=== PATIENT | female | born 1930 | race Caucasian/White ===

== ENCOUNTER 2017-02-15 09:24 | Emergency (ER) | payer MEDICARE ==
[~2017-02-15] VITALS: Ht 152.4 cm; Wt 54.5 kg
[~2017-02-15 09:24] MED LIST: ASPI81TA40 PO; CLOP75TA14 PO; FOSD70 PO; LOPRESSOR25 MG PO; SIMV80TA PO
[2017-02-15 09:34] VITALS: BP 127/101; PULSE 83; RESP 17; O2SAT 99
--- NOTE | 2017-02-15 09:38 | ED.REPORT ---
HPI-Trauma Minor / Fall Date of Service Feb 15, 2017 ED Provider: Benjamin Ny MD Pt is a an 86 y/o female w/ a hx of dementia, CAD and IA s/p stenting, presenting to the ED via EMS due to ground level fall which occurred prior to arrival. The patient states she believes she fell but otherwise does not know what happened. EMS reports that they found on the ground in her bathroom with her walker outside. They believe she fell backward into the walk-in shower. She denies any neck pain. The daughter denies her taking any anticoagulants. She apparently is recently being treated for a tremor with Levodopa. No further history is able to be obtained secondary to dementia Nursing Notes Stated Complaint: GLF Chief Complaint: Head, Face, Neck Trauma Nursing Notes Reviewed: Yes Allergies: Coded Allergies: No Known Allergies (Unverified Allergy, Unknown, 02/15/17) Scheduled Alendronate-Expunged Drug, Do Not Renew! (Alendronate-Expunged Drug, Do Not Renew!) 70 Mg Tablet 70 MG PO QW Aspirin-Expunged Drug, Do Not Renew! (Aspirin-Expunged Drug, Do Not Renew!) 81 Mg Tab.chew 81 MG PO DAILY Clopidogrel-Expunged Drug, Do Not Renew! (Plavix-Expunged Drug, Do Not Renew!) 75 Mg Tablet 75 MG PO DAILY Metoprolol Tart-Expunged Drug, Do Not Renew! (Metoprolol Tart-Expunged Drug, Do Not Renew!) 25 Mg Tab 25 MG PO BID Simvastatin-Expunged Drug, Choose New Med! 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 Hx pneumonia Arthritis Constipation Past Surgical History Cataract 2008 Knee 2006 Family History None reported Smoking History Unknown if Ever Smoker Social History Alcohol Use: "Social" Drug Use: Denies drug use Ambulatory Status Walker Review of Systems Review of Systems Note: Unable to obtain secondary to dementia except as noted Physical Exam General: Airway patent, GCS of 15 --- eyes (4), verbal (5), motor (6) HEENT: Right eye normal with pupils 4-3 and briskly reactive Left eye normal with pupils 4-3 and briskly reactive Extraocular movements intact Left tympanic membrane normal, right tympanic membrane normal Midface stable, no malocclusion Ecchymosis to nasal bridge Large amount of dried blood from nares No obvious external signs of trauma to the scalp appreciated No scalp lacerations Neck: nontender, trachea midline, c-collar in place Lungs: Clear to auscultation bilaterally, normal work of breathing Chest: Stable without tenderness, no crepitus Cardiac: Regular rate and rhythm Abdomen: Normal, non-tender, non-distended. Back: No bruising, tenderness, or step-offs Rectal: Deferred Pelvis: Stable Skin: Warm and well perfused Extremities: Left upper extremity grossly normal, no deformity. Right upper extremity grossly normal, no deformity. Right lower extremity grossly normal, no deformity. Left lower extremity grossly normal, no deformity. Pulses: Palpable to bilateral upper and lower extremities Neuro: Alert, history of dementia but at baseline per daughter. Moving all extremities normally with grossly intact and equal strength and sensation throughout bilateral upper and lower extremities. Initial Vital Signs Vital Signs (First) Date Time Temp Pulse Resp B/P Pulse Ox O2 Delivery O2 Flow Rate FiO2 02/15/17 09:34 36.4 83 17 127/101 99 Room Air Initial VS: Reviewed Interpretation & Diagnostics Interpretation & Diagnostics: CT chest/abd/pelvis w/ contrast: IMPRESSION: 1. No acute thoracic or intra-abdominal injury. 2. Cholelithiasis. Focal wall thickening of the posterior gallbladder. Nonemergent gallbladder ultrasound recommended to further characterize this finding. Differential considerations include adenomyomatosis, redundant fold, and neoplasm. Dictated by: Юлия Salinas M.D. on 02/15/2017 at 12:56 Approved by: Юлия Salinas M.D. on 02/15/2017 at 13:05 CT face w/out contrast: IMPRESSION: 1. Displaced bilateral nasal bone fractures. 2. Left inferior orbital wall fracture with herniation of orbital fat. No herniation of the inferior rectus musculature. 3. Probable minimally displaced medial left orbital wall fracture. Dictated by: Юлия Salinas M.D. on 02/15/2017 at 13:12 Approved by: Юлия Salinas M.D. on 02/15/2017 at 13:17 Lab Results Interpretation Result Diagram: 02/15/17 1000 02/15/17 1000 Test 02/15/17 10:00 White Blood Count 6.4th/mm3 (3.8-10.1) Red Blood Count 3.86mil/mm3 (3.90-5.20) Hemoglobin 12.5g/dL (12.0-15.6) Hematocrit 38.2% (35.0-46.0) Mean Corpuscular Volume 99.0fL (81-100) Mean Corpuscular Hemoglobin 32.4pg (27.0-35.0) Mean Corpuscular Hemoglobin Concent 32.7% (32.0-37.0) Red Cell Distribution Width 13.6% (12.3-15.4) Platelet Count 208bil/L (150-400) Neutrophils (%) (Auto) 58.9% (40-74) Lymphocytes (%) (Auto) 27.4% (14-46) Monocytes (%) (Auto) 9.6% (4-12) Eosinophils (%) (Auto) 3.6% (0-5) Basophils (%) (Auto) 0.2% (0-3) Prothrombin Time 9.9sec (8.1-12.5) Prothromb Time International Ratio 0.93ratio Activated Partial Thromboplast Time 23.2sec (22.8-33.0) Urine Color Yellow (YELLOW) Urine Appearance Clear (CLEAR,HAZY) Urine pH 7.0 (5.0-8.0) Urine Specific [place] 1.025 (1.003-1.035) Urine Protein Negativemg/dL (NEG,TRACE) Urine Glucose (UA) Negativemg/dL (NEGATIVE) Urine Ketones Negativemg/dL (NEGATIVE) Urine Occult Blood Negative (NEGATIVE) Urine Nitrite Negative (NEGATIVE) Urine Bilirubin Negative (NEGATIVE) Urine Urobilinogen Normalmg/dL (NORMAL) Urine Leukocyte Esterase Negative (NEGATIVE) Urine RBC 3-10/hpf (0-2) Urine WBC 0-5/hpf (0-5) Urine Epithelial Cells Few/hpf (NONE-MOD) Urine Crystals None seen (NONE SEEN) Urine Bacteria None/hpf (NONE-FEW) Urine Hyaline Casts >20/lpf (NONE) Urine Granular Casts None seen (NONE SEEN) Urine Waxy Casts None seen (NONE SEEN) Urine Red Blood Cell Casts None seen (NONE SEEN) Urine White Blood Cell Casts None seen (NONE SEEN) Urine Mucus None seen (None Seen) Urine Trichomonas None seen (NONE SEEN) Urine Yeast None (NONE SEEN) Urinalysis Comment None Sodium Level 143mEq/L (134-144) Potassium Level 4.5mEq/L (3.5-5.2) Chloride Level 103mEq/L (97-108) Carbon Dioxide Level 23mmol/L (18-29) Blood Urea Nitrogen 29mg/dL (8-27) Creatinine 0.84mg/dL (0.57-1.00) Estimat Glomerular Filtration Rate 92mL/min (>59) Glucose Level 105mg/dL (60-99) Calcium Level 9.4mg/dL (8.5-10.1) Magnesium Level 2.2mg/dL (1.6-2.6) Total Bilirubin 0.4mg/dL (0.0-1.2) Aspartate Amino Transf (AST/SGOT) 23U/L (0-50) Alanine Aminotransferase (ALT/SGPT) 13U/L (0-32) Alkaline Phosphatase 80U/L (25-165) Troponin T 0.010ug/L (0.0-0.011) Total Protein 7.6g/dL (6.4-8.4) Albumin 4.0g/dL (3.4-5.0) Lipase 113U/L (13-60) Alcohols < 10mg/dL (0-10) ECG Interpretation Time: 10:41 Interpreted by: ED physician Normal ECG Interpretation: Normal ECG w/ rate of... (72), Normal rate, Normal sinus rhythm, No acute ischemic changes, Normal QRS, Normal axis, Normal intervals, Adequate tracing CT Head Interpretation IMPRESSION: 1. No acute intracranial findings. 2. Displaced nasal bone fractures. 3. Extensive findings likely associated with chronic microvascular ischemic changes. Dictated by: Юлия Salinas M.D. on 02/15/2017 at 13:11 Approved by: Юлия Salinas M.D. on 02/15/2017 at 13:12 Study: Head CT no contrast Interpretation / Wet Read by: Interpret - Radiologist CT C-Spine Interpretation IMPRESSION: 1. Severe degenerative change. 2. No acute cervical spine injury. 3. Cystic deformity along the posterior aspect of C2. If further characterization is warranted, nonemergent MRI of the cervical spine may be helpful. Dictated by: Юлия Salinas M.D. on 02/15/2017 at 13:05 Approved by: Юлия Slainas M.D. on 02/15/2017 at 13:11 Study type: CT no contrast Interpretation / Wet Read by: Interpret - Radiologist Re-Eval/Medical Decision Med Decision/Clinical Course In summary, 86-year-old female presenting to the ED after a fall earlier today; history Limited secondary to patient's dementia. The circumstances surrounding her fall are unclear and the assumption is that this was a syncopal episode. She lives with her daughter. Differential is broad and includes intracranial mass/bleed, dysrhythmia, metabolic abnormality, ACS, orthostatic or vasovagal event. Upon arrival to the ED, patient evaluated per ACLS protocol. Primary and secondary survey notable for a large amount of dried blood to the right naris, ecchymosis to the bridge of the nose. Concern for facial fracture given apparent mechanism and physical exam; extraocular movements intact. No other injuries noted. CT scans of the patient's chest, abdomen, and pelvis negative for acute traumatic injury; incidental cholelithiasis noted. CT of the patient' s head negative for acute bleed or other acute abnormalities, and the cervical spine also has no evidence of acute fracture. CT of the patient's face demonstrates displaced bilateral nasal bone fractures, a left inferior orbital wall fracture with herniation of orbital fat without herniation of the musculature, and a probable minimally displaced medial left orbital wall fracture. Laboratory studies grossly within normal limits with the exception of a lipase of 113. Urinalysis negative for infection. Troponin negative. EKG demonstrates sinus rhythm without acute ischemic changes. I discussed the patient's face CT findings with ENT as noted below; they recommended outpatient follow-up with both [facility] and with Dr. Steward[facility] in ENT; no acute intervention needed at this time. I discussed the above, including all CT findings and laboratory findings with the patient's family. Given her apparent syncopal episode and substantial facial injury, age, and need for further workup to determine etiology of her fall, plan was to admit the patient for further management and evaluation. The patient's family requested discharge as they stated she would not like to stay in the hospital any more and wanted to go home. I explained that I was concerned that there may be an etiology for her syncope that we could intervene on in an attempt to prevent further falls, and that her workup, including the incidental findings noted above, required further evaluation and was incomplete at this time - concerned that she may fall again after going home. They verbalized understanding of this and stated that they were aware of the risk. I explained that I understood , however there would be leaving against medical advice. They maintained that they would still like to take her home. I discussed that if they were to change her mind, they should return to the ED any time. Also, if the patient developed any change in her current mental status, began complaining of any new or worsening symptoms, that they should return to the ED immediately. In addition, I recommended that they call their primary care physician tomorrow in an attempt to further workup this issue. They were agreeable to the plan as stated, no further questions. Source of Hx: Old records Re-Evaluation/Progress #1: Time of Eval: 14:31 Re-Evaluation/Progress Note: Pt rechecked. Neuro exam unchanged. Discussed imaging findings and need for ENT consult. Informed pt of need for admission. Pt understands and agrees with plan for admission. All questions addressed. Re-Evaluation/Progress #2: Time of Eval: 14:50 Re-Evaluation/Progress Note: Family came out and informed me they changed their mind about her being admitted. They are willing to leave AMA. Consultation : Referral / Consult Name: Enzo Steward MD Call Returned at: 15:27 Termite Treater: Agrees with eval, Agrees with plan Note: Case discussed with ENT. Call office tomorrow for appointment as well. No need for acute intervention at this time. Counseled Regarding: Diagnosis, Lab results, Need for follow-up, When/why to return to ED Discharge & Departure Impression: Primary Impression: Syncope Syncope type: unspecified Qualified Code: R55 - Syncope and collapse Additional Impressions: Fall from ground level Nasal bone fracture Encounter type: initial encounter Fracture type: closed Qualified Code: S02.2XXA - Fracture of nasal bones, initial encounter for closed fracture Orbital wall fracture Encounter type: initial encounter Fracture type: closed Qualified Code: S02.80XA - Fracture of other specified skull and facial bones, unspecified side , initial encounter for closed fracture Disposition: AGAINST MEDICAL ADVICE Discharge Condition All VS Reviewed: Yes Condition: Stable Patient Instructions: Facial Fracture (ED), Syncope (ED) Additional Instructions: Please be sure to follow up with your regular doctor tomorrow. I am worried that there may be a serious cause of your symptoms that could cause you to have a serious fall again and would like you to be admitted to the hospital to determine how we can best treat you, but you have stated you'd like to be discharged home despite knowing these risks. Minimize anything that would increase pressure in the face including no blowing of the nose; please read the attached instructions. You need to call both [facility] and the ENT office (Dr. Steward) tomorrow to arrange for followup appointments. If you change your mind or would like further info, or if there's anything else of concern to you, please return to the ED immediately. Thank you for allowing us to be a part of your care in the ED today. Please return to the emergency department for any new or worsening symptoms including any nausea, vomiting, abdominal pain, shortness of breath, chest pain , one sided weakness/numbness, fevers, or chills, or if there's anything else of concern to you. Referrals: Salina Melgar MD (PCP) [facility] Enzo Steward MD Scribe Attestation Portions of this note were transcribed by Ty Trevino. I, Dr. Ny, personally performed the history, physical exam and medical decision-making; I reviewed and confirmed the accuracy of the information in the transcribed note. copies to: [facility] Enzo Steward MD; Salina Melgar MD, William B MD Feb 15, 2017 09:38 TY TREVINO Feb 15, 2017 09:45
[2017-02-15] MEDS ORDERED: 0.9% Sodium Chloride 1,000 ML IV ONE (09:40)
[2017-02-15 10:19] LABS: BASOPHILS % (AUTO) 0.2 % (0-3); EOSINOPHILS % (AUTO) 3.6 % (0-5); MONOCYTES % (AUTO) 9.6 % (4-12); Mean Corpuscular Hemoglobin 32.4 pg (27.0-35.0); NEUTROPHILS % (AUTO) 58.9 % (40-74); Platelet Count 208 bil/L (150-400)
[2017-02-15 10:49] LABS: INR 0.93 ratio
[2017-02-15 10:53] LABS: APPEARANCE,URINE CLEAR (CLEAR,HAZY); COLOR,URINE YELLOW (YELLOW); OCCULT BLOOD,URINE NEGATIVE (NEGATIVE); UROBILINOGEN,URINE NORMAL (NORMAL)
[2017-02-15 10:56] LABS: Lipase 113 U/L (13-60)
[2017-02-15 11:20] VITALS: BP 128/80; PULSE 77; RESP 16; O2SAT 92
[2017-02-15 12:00] LABS: Magnesium 2.2 mg/dL (1.6-2.6)
--- NOTE | 2017-02-15 13:07 | DRSVH ---
PROCEDURE: CT CHEST, ABDOMEN AND PELVIS WITH CONTRAST ([id number]) INDICATIONS: fall, head and face trauma w/ back pain TECHNIQUE: After the administration of intravenous contrast, 5 mm thick sections acquired from the lung apices t o the symphysis. 5 mm thick coronal and sagittal reformats were acquired. Additional 7 mm thick cor onal maximum intensity projection (MIP) reformats acquired through the lungs. Optional 10-minute del ayed imaging may be performed from the kidneys to the bladder. For radiation dose reduction, the fol lowing was used: automated exposure control, adjustment of mA and/or kV according to patient size. COMPARISON: None. FINDINGS: Image quality: Excellent. CHEST: Lungs: No pulmonary contusions or lacerations. No acute airspace opacities. No pneumothorax or hem othorax. Central and peripheral airways appear patent and normal in caliber. Mediastinum: No mediastinal hematomas. Heart size is normal. No pericardial effusion. Thoracic ao rta and pulmonary arteries demonstrate normal size and enhancement. Scattered atheromatous calcificat ions are present within the aortic arch. No mediastinal or hilar adenopathy. Esophagus is normal i n caliber. No hiatal hernia. Chest wall: No rib fractures. No subcutaneous emphysema. No axillary or supraclavicular adenopathy . Thyroid gland is unremarkable. ABDOMEN: Solid organs: Liver and spleen are normal in size and enhancement, without lacerations. A subcentime ter hypodensity is present within the right hepatic lobe which may represent a simple hepatic cyst. T here is a 14 and a 15 mm diameter calcified gallstone in the gallbladder fundus. Focal thickening is present along the posterior aspect of the gallbladder wall. Biliary system is non-dilated. Pancreas enhances normally, without transection. No adrenal hematomas. Both kidneys enhance normally, withou t hydronephrosis or lacerations. Cystic cortical lesions are present within the kidneys which likely represent simple renal cysts but are too small to fully characterize. There are multiple hypodense l eft pararenal cysts. Peritoneum and bowel: No free fluid or air. Unenhanced bowel loops demonstrate normal wall thicknes s and caliber. The appendix is thin walled and gas filled. Nodes and vessels: No retroperitoneal or mesenteric adenopathy. Aorta and inferior vena cava are no rmal in size and enhancement. There are scattered atheromatous calcifications throughout the aorta a nd iliac arteries bilaterally. Miscellaneous: No ventral hernias. PELVIS: Genitourinary: Bladder wall thickness is normal. Miscellaneous: No inguinal hernias or adenopathy. Bones: Pelvic ring and hip joints appear intact. No vertebral compression fractures. Severe degene rative changes are present at the bilateral hip joints. Moderate degenerative changes present through out the thoracolumbar spine. IMPRESSION: 1. No acute thoracic or intra-abdominal injury. 2. Cholelithiasis. Focal wall thickening of the posterior gallbladder. Nonemergent gallbladder ultras ound recommended to further characterize this finding. Differential considerations include adenomyoma tosis, redundant fold, and neoplasm. Dictated by: Юлия Salinas M.D. on 02/15/2017 at 12:56 Approved by: Юлия Salinas M.D. on 02/15/2017 at 13:05
--- NOTE | 2017-02-15 13:12 | DRSVH ---
PROCEDURE: CT CERVICAL SPINE WITHOUT CONTRAST ([id number]) INDICATIONS: fall, head and face trauma w/ back pain TECHNIQUE: Noncontrast 3 mm thick sections acquired from the skull base to the T4 level. Sagittal and coronal r eformats were then constructed. For radiation dose reduction, the following was used: automated exp osure control, adjustment of mA and/or kV according to patient size. COMPARISON: None. FINDINGS: Image quality: Excellent. Bones: Severe degenerative changes present throughout the cervical spine including intervertebral dis c space narrowing, endplate sclerosis, and osteophytosis. A cystic deformity is present within the po sterior aspect of the C2 vertebral body. Soft tissues: Prevertebral soft tissues are normal in thickness. No paravertebral hematomas. No ap ical pneumothoraces. IMPRESSION: 1. Severe degenerative change. 2. No acute cervical spine injury. 3. Cystic deformity along the posterior aspect of C2. If further characterization is warranted, nonem ergent MRI of the cervical spine may be helpful. Dictated by: Юлия Salinas M.D. on 02/15/2017 at 13:05 Approved by: Юлия Salinas M.D. on 02/15/2017 at 13:11
--- NOTE | 2017-02-15 13:14 | DRSVH ---
PROCEDURE: CT BRAIN WITHOUT CONTRAST ([id number]) INDICATIONS: fall, head and face trauma w/ back pain TECHNIQUE: Noncontrast 4.5 mm thick angled axial sections acquired from the foramen magnum to the vertex, with c oronal reformats. COMPARISON: None. FINDINGS: Image quality: Excellent. CSF spaces: Basal cisterns are patent. No extra-axial fluid collections. The ventricles are symmet bess in size and shape. Brain: No intracranial bleeds or masses. There is severe cerebral volume loss for age, with resulta nt ventricular and sulcal prominence. There are extensive periventricular and deep white matter chrome cleaner william small vessel ischemic changes. There is intracranial internal carotid artery atherosclerosis. Skull and face: There are displaced bilateral nasal bone fractures. Calvarium appears intact, withou t suspicious lesions. Sinuses: Visualized sinuses and mastoids are clear. IMPRESSION: 1. No acute intracranial findings. 2. Displaced nasal bone fractures. 3. Extensive findings likely associated with chronic microvascular ischemic changes. Dictated by: Юлия Salinas M.D. on 02/15/2017 at 13:11 Approved by: Юлия Salinas M.D. on 02/15/2017 at 13:12
--- NOTE | 2017-02-15 13:18 | DRSVH ---
PROCEDURE: CT FACE WITHOUT CONTRAST ([id number]) INDICATIONS: fall, head and face trauma w/ back pain TECHNIQUE: Noncontrast 1.5 mm thick axial images acquired from the mandible through the frontal sinuses, with co woo and sagittal reformatting. For radiation dose reduction, the following was used: automated ex posure control. COMPARISON: None. FINDINGS: Image quality: Excellent. Bones and teeth: There are comminuted, displaced bilateral nasal bone fractures. There is a displace d septal fracture. There is a left inferior orbital wall fracture with herniation of orbital fat. No herniation of the inferior rectus musculature. There is likely a minimally displaced left medial orbi isabella wall fracture. Orbital rock are otherwise intact. Visualized portions of the mandible demonstra te no fractures or subluxation. Zygomatic arches are intact. Pterygoid plates are intact. Visualiz ed portions of the skull base and auditory canals are intact. Sinuses: A small amount of intermediate fluid is present within the right maxillary sinus which may represent blood. Paranasal sinuses are otherwise aerated, without fluid levels, mucosal thickening, o r mucoceles. Mastoid air cells are aerated. Soft tissues: No edema, masses, or fluid collections. No enlarged lymph nodes. No soft tissue lace rations or debris. Vascular: Visualized vascular structures appear normal in the absence of contrast. Bony vascular fo ramina and canals are intact. IMPRESSION: 1. Displaced bilateral nasal bone fractures. 2. Left inferior orbital wall fracture with herniation of orbital fat. No herniation of the inferior rectus musculature. 3. Probable minimally displaced medial left orbital wall fracture. Dictated by: Юлия Salinas M.D. on 02/15/2017 at 13:12 Approved by: Юлия Salinas M.D. on 02/15/2017 at 13:17
[2017-02-15 13:54] VITALS: BP 146/100; PULSE 72; RESP 17; O2SAT 98
[2017-02-15] MEDS ORDERED: HYDR-4003 PO (16:15)
[2017-02-15 16:29] VITALS: BP 163/60; PULSE 82; RESP 27
== END 2017-02-15 16:20 | disposition left against medical advice (07) ==
LOC: SED 09:24
DX: S02.80XA Fracture of other specified skull and facial bones, unspecified side, initial encounter for closed fracture (principal); S02.2XXA Fracture of nasal bones, initial encounter for closed fracture; R55 Syncope and collapse; W18.39XA Other fall on same level, initial encounter; Y93.9 Activity, unspecified; Y92.002 Bathroom of unspecified non-institutional (private) residence as the place of occurrence of the external cause; Y99.8 Other external cause status; I25.10 Atherosclerotic heart disease of native coronary artery without angina pectoris; I25.2 Old myocardial infarction; Z79.82 Long term (current) use of aspirin
CPT/HCPCS: 36415; 51701; 70450; 70486; 71260; 72125; 74177; 80053; 81001; 82948; 83690; 83735; 84484; 85025; 85610; 85730; 86850; 93005; 96374; 99285; G0480; J2060; J7030; Q9967